=== PATIENT | female | born 1965 | race Caucasian/White ===

== ENCOUNTER 2017-04-15 11:58 | Inpatient (IN) | payer BC ==
[2017-04-15] MEDS ORDERED: LIDOCAINE 2% VISCOUS 15 ML UDCUP PO ONE (13:02)
[2017-04-15] MEDS ORDERED: fentaNYL 100 MCG/2 ML INJ IVP ONE (13:02)
[2017-04-15] MEDS ORDERED: HYOSCYAMINE SULFATE 0.125 MG TAB PO ONE (13:02)
[2017-04-15] MEDS ORDERED: NS 1,000 ML IV ONE (13:02)
[2017-04-15] MEDS ORDERED: MAG HYDROX/AL HYDROX/SIMETH 30 ML UDCUP PO ONE (13:02)
--- NOTE | 2017-04-15 13:02 | EDPHY ---
H & P Time Seen by Provider: 04/15/17 12:39 HPI/ROS: CHIEF COMPLAINT: Abdominal pain HISTORY OF PRESENT ILLNESS: This 51-year-old woman presents with upper abdominal pain since this past Thursday on the weekend. She says it feels like but not in her epigastric area at 88 to her left upper abdomen. It cowan when she swallows. She feels cold and hot. Symptoms moderate to severe and associated with an increase in her blood glucose from a baseline of around 150 to 330 today this a.m.. Associated with decreased oral intake, worse when she tries to eat or drink. Symptoms severe today. REVIEW OF SYSTEMS: Eye: no change in vision ENT: no sore throat Cardiac: no chest pain or syncope Pulmonary: no cough or SOB Abdomen: HPI, no vomiting or diarrhea. She does have nausea. Musculoskeletal: no back pain Skin: no rash Neuro: Mild headache Constitutional: no fever : no urinary symptoms A comprehensive 10 point review of systems is otherwise negative aside from elements mentioned in the history of present illness. PAST MEDICAL HISTORY: Partial hysterectomy, insulin-dependent diabetes, multiple personality. Social history: Here with her daughter, no alcohol. General Appearance: Alert and conversant, cooperative. Eyes: No scleral icterus. ENT, Mouth: Normal mucous membranes. Respiratory: Normal respiratory effort, breath sounds equal, lungs are clear to auscultation. Cardiovascular: Regular rate and rhythm. Gastrointestinal: Epigastric and right upper quadrant tenderness. Neurological: Alert and oriented x3. Normally conversant. Face symmetric, normal movement and sensation in all extremities. Skin: Warm and dry, no rashes. Musculoskeletal: No peripheral edema and no joint swelling. Psychiatric: Tearful, appears uncomfortable. Emergency Department course/MDM: GI cocktail, Zofran 4 mg IV, fentanyl 50 mcg IV. Right upper quadrant ultrasound and labs to include LFTs and lipase. 1309: Negative right upper quadrant ultrasound per Dr. Schwartz. 1440: Feels better but still has epigastric tenderness. CT scanning discussed and consented. 1543: Negative abdominal pelvis CT per Dr. Laguna. 1550: Still having pain, still mildly tender but without rebound or guarding, plan to admit, GI consultation. 1607: Discussed with [place], admit. GI consult, spoke with Helen at 1620. Smoking Status: Never smoked Constitutional: Initial Vital Signs Temperature (C) 36.7 C 04/15/17 12:00 Heart Rate 101 H 04/15/17 12:00 Respiratory Rate 18 04/15/17 12:00 Blood Pressure 125/91 H 04/15/17 12:00 O2 Sat (%) 94 04/15/17 12:00 O2 Delivery Mode Nasal Cannula O2 (L/minute) 2 Allergies/Adverse Reactions: menthol Allergy (Severe, Verified 04/15/17 12:12) Anaphylaxis acetaminophen [From Percocet] Allergy (Intermediate, Verified 04/15/17 12:13) hallucinations oxycodone [From Percocet] Allergy (Intermediate, Verified 04/15/17 12:13) hallucinations hydromorphone [From Dilaudid] Allergy (Unknown, Verified 04/15/17 12:13) Home Medications: Medication Instructions Recorded Citalopram [CeleXA] 20 mg PO 04/15/17 Insulin Detemir [Levemir] 100 unit SQ 04/15/17 Insulin Lispro [humALOG LISPRO 100 100 unit SQ 04/15/17 units/ml (*)] lamoTRIgine [LamICTAL] 25 mg PO 04/15/17 Medical Decision Making - Diagnostics Imaging Results: Imaging Impressions Abdomen Ultrasound 04/15/17 13:03 Impression: 1. Mild hepatomegaly with diffuse hepatic steatosis. 2. Normal appearance of the gallbladder, with no cholelithiasis, cholecystitis, or bile duct dilatation. Findings were discussed with KARISHMA MEDINA MD at 14:14, on 04/15/2017. Abdomen CT 04/15/17 14:42 Impression: 1. No explanation for epigastric pain. Specifically, no evidence of perforated ulcer or pancreatitis. 2. Hepatic steatosis. 3. Constipation. Normal appendix. Findings discussed with Emergency Department physician, Karishma Medina on 2016 at 1551 hours. Differential Diagnosis: Differential diagnosis considered for abdominal pain including but not limited to appendicitis, cholecystitis, pancreatitis, gastritis and urinary tract infection. - Data Points Laboratory Results: Laboratory Results 04/15/17 12:25 04/15/17 12:25 04/15/17 04/15/17 12:25 12:25 WBC 5.55 10^3/uL 10^3/uL (3.80-9.50) RBC 5.61 10^6/uL H 10^6/uL (4.18-5.33) Hgb 17.7 g/dL H g/dL (12.6-16.3) Hct 50.0 % H % (38.0-47.0) MCV 89.1 fL fL (81.5-99.8) MCH 31.6 pg pg (27.9-34.1) MCHC 35.4 g/dL g/dL (32.4-36.7) RDW 12.4 % % (11.5-15.2) Plt Count 194 10^3/uL 10^3/uL (150-400) MPV 10.8 fL fL (8.7-11.7) Neut % (Auto) 58.0 % % (39.3-74.2) Lymph % (Auto) 31.7 % % (15.0-45.0) [place] % (Auto) 7.2 % % (4.5-13.0) Eos % (Auto) 1.8 % % (0.6-7.6) Baso % (Auto) 0.9 % % (0.3-1.7) Nucleat RBC Rel Count 0.0 % % (0.0-0.2) Absolute Neuts (auto) 3.22 10^3/uL 10^3/uL (1.70-6.50) Absolute Lymphs (auto) 1.76 10^3/uL 10^3/uL (1.00-3.00) Absolute Monos (auto) 0.40 10^3/uL 10^3/uL (0.30-0.80) Absolute Eos (auto) 0.10 10^3/uL 10^3/uL (0.03-0.40) Absolute Basos (auto) 0.05 10^3/uL 10^3/uL (0.02-0.10) Absolute Nucleated RBC 0.00 10^3/uL 10^3/uL (0-0.01) Immature Gran % 0.4 % % (0.0-1.1) Immature Gran # 0.02 10^3/uL 10^3/uL (0.00-0.10) Sodium 140 mEq/L mEq/L (134-144) Potassium 4.4 mEq/L mEq/L (3.5-5.2) Chloride 96 mEq/L L mEq/L (97-110) Carbon Dioxide 28 mEq/l mEq/l (22-31) Anion Gap 16 mEq/L mEq/L (8-16) BUN 10 mg/dL mg/dL (7-23) Creatinine 0.6 mg/dL mg/dL (0.6-1.0) Estimated GFR > 60 Glucose 317 mg/dL H mg/dL (70-100) Calcium 9.7 mg/dL mg/dL (8.5-10.4) Total Bilirubin 1.2 mg/dL mg/dL (0.1-1.4) Conjugated Bilirubin 0.3 mg/dL mg/dL (0.0-0.5) Unconjugated Bilirubin 0.9 mg/dL mg/dL (0.0-1.1) AST 28 IU/L IU/L (14-46) ALT 55 IU/L H IU/L (9-52) Alkaline Phosphatase 107 IU/L IU/L (38-126) Total Protein 6.1 g/dL L g/dL (6.3-8.2) Albumin 3.9 g/dL g/dL (3.5-5.0) Lipase 114 IU/L IU/L (23-300) Medications Given: Discontinued Medications Al Hydroxide/Mg Hydroxide (Maalox Susp) 30 ml PO ONCE ONE Stop: 04/15/17 13:03 Last Admin: 04/15/17 13:24 Dose: 30 ml Fentanyl (Sublimaze) 50 mcg IVP EDNOW ONE Stop: 04/15/17 13:03 Last Admin: 04/15/17 13:25 Dose: 50 mcg Hyoscyamine Sulfate (Levsin, Hyomax-Sl) 0.25 mg PO ONCE ONE Stop: 04/15/17 13:03 Last Admin: 04/15/17 13:25 Dose: 0.25 mg Sodium Chloride (Ns) 1,000 mls @ 0 mls/hr IV EDNOW ONE; Wide Open PRN Reason: Protocol Stop: 04/15/17 13:03 Last Admin: 04/15/17 13:27 Dose: 1,000 mls Lidocaine (Lidocaine 2% Viscous) 15 ml PO ONCE ONE Stop: 04/15/17 13:03 Last Admin: 04/15/17 13:24 Dose: 15 ml Promethazine HCl (Phenergan) 12.5 mg IVP EDNOW ONE Stop: 04/15/17 13:04 Last Admin: 04/15/17 13:27 Dose: 12.5 mg Departure - Departure Disposition: [facility] Inpatient Acute Clinical Impression: Abdominal pain Qualifiers: Abdominal location: epigastric Qualified Code(s): R10.13 - Epigastric pain Condition: Good
[2017-04-15] MEDS ORDERED: PROMETHAZINE HCL 25 MG/ML INJ IVP ONE (13:03)
[2017-04-15 13:07] LABS: % IMMATURE GRANULYOCYTES 0.4 % (0.0-1.1); ABSOLUTE IMMATURE GRANULOCYTES 0.02 10^3/uL (0.00-0.10); ADD DIFF? NO; ADD MORPH? NO; ADD SCAN? NO; ATYPICAL LYMPHOCYTE FLAG 0 (0-99); FRAGMENT RBC FLAG 0 (0-99); HEMOGLOBIN 17.7 g/dL (12.6-16.3); LEFT SHIFT FLG 0 (0-99); LIPEMIA HEMOLYSIS FLAG 90 (0-99); MEAN CELL HEMOGLOBIN 31.6 pg (27.9-34.1); MEAN CELL HEMOGLOBIN CONCENTR. 35.4 g/dL (32.4-36.7); MEAN CELL VOLUME 89.1 fL (81.5-99.8); MEAN PLATELET VOLUME 10.8 fL (8.7-11.7); PLATELET CLUMPS FLAG 0 (0-99); PLATELET COUNT 194 10^3/uL (150-400); RED BLOOD CELL COUNT 5.61 10^6/uL (4.18-5.33); RED CELL DISTRIBUTION WIDTH 12.4 % (11.5-15.2)
[2017-04-15 13:13] LABS: ALANINE AMINOTRANSFERASE 55 IU/L (9-52); ALBUMIN 3.9 g/dL (3.5-5.0); ALKALINE PHOSPHATASE 107 IU/L (38-126); ANION GAP 16 mEq/L (8-16); ASPARTATE AMINOTRANSFERASE 28 IU/L (14-46); BILIRUBIN,TOTAL 1.2 mg/dL (0.1-1.4); BILIRUBIN-CONJUGATED 0.3 mg/dL (0.0-0.5); BILIRUBIN-UNCONJUGATED 0.9 mg/dL (0.0-1.1); CALCIUM 9.7 mg/dL (8.5-10.4); CARBON DIOXIDE 28 mEq/l (22-31); CHLORIDE 96 mEq/L (97-110); CREATININE 0.6 mg/dL (0.6-1.0); GLOMERULAR FILTRATION RATE > 60; GLUCOSE 317 mg/dL (70-100); POTASSIUM 4.4 mEq/L (3.5-5.2); SODIUM 140 mEq/L (134-144); TOTAL PROTEIN 6.1 g/dL (6.3-8.2)
--- NOTE | 2017-04-15 14:09 | CPEKG ---
Heart Rate: 87 RR Interval: 690 P-R Interval: 168 QRSD Interval: 74 QT Interval: 356 QTC Interval: 429 P [place]: 67 QRS [place]: -4 T Wave [place]: 64 EKG Severity - ABNORMAL ECG - EKG Impression: SINUS RHYTHM EKG Impression: PAUL, CONSIDER BIATRIAL ABNORMALITIES EKG Impression: PROBABLE LEFT VENTRICULAR HYPERTROPHY Electronically Signed By: Mikie Domingo 15-Apr-2017 19:45:52
[2017-04-15] MEDS ORDERED: IOPAMIDOL (ISOVUE-300) 100 ML BTL ONE (14:48)
[2017-04-15] MEDS ORDERED: D50W 25 GM/50 ML SYR IVP PRN (18:39)
[2017-04-15] MEDS ORDERED: PROMETHAZINE HCL 25 MG/ML INJ IVP PRN (18:42)
[2017-04-15] MEDS ORDERED: ACETAMINOPHEN 325 MG TAB PO PRN (18:42)
[2017-04-15] MEDS ORDERED: ONDANSETRON 4 MG/2 ML VIAL IVP PRN (18:42)
[2017-04-15] MEDS ORDERED: LACTULOSE 20 GM/30 ML UDCUP PO PRN (19:37)
[2017-04-15] MEDS ORDERED: MAGNESIUM HYDROXIDE 30 ML UDCUP PO PRN (19:37)
[2017-04-15] MEDS ORDERED: BISACODYL 10 MG SUPP PR PRN (19:37)
[2017-04-15] MEDS ORDERED: POLYETHYLENE GLYCOL 3350 17 GM PKT PO PRN (19:37)
[2017-04-15] MEDS: PANTOPRAZOLE SODIUM 40 MG VIAL IVP SCH (19:55)
[2017-04-15] MEDS: NS 1,000 ML IV SCH (19:55)
--- NOTE | 2017-04-15 19:59 | GHP ---
[f rep st] HISTORY AND PHYSICAL DATE OF ADMISSION: 04/15/2017 CHIEF COMPLAINT: Epigastric pain. HISTORY: The patient is a 51-year-old female, who has had 5 days of severe epigastric pain. It burn s when she swallows and gets worse when she eats and drinks. The burning radiates into her chest. S he has had nausea but no vomiting. She denies any fever. There has been no diarrhea or constipation . She has had a 20 pound unintentional weight loss since June. PAST MEDICAL HISTORY: Diabetes, multiple personality disorder, peptic ulcer disease as a teenager. PAST SURGICAL HISTORY: Hysterectomy. MEDICATIONS: Please see computer record for full detailed list. ALLERGIES: Oxycodone. SOCIAL HISTORY: No smoking. No alcohol. She lives with her . REVIEW OF SYSTEMS: Complete review of systems obtained. Review of systems is negative regarding con stitutional, HEENT, GI, pulmonary, vascular, , hematology, skin, musculoskeletal, endocrine, psychi atric except for positives and negatives as in HPI. FAMILY HISTORY: Reviewed and noncontributory to presenting complaint. PHYSICAL EXAMINATION: GENERAL: Well-developed, well-nourished female, in no distress. VITAL SIGNS: Temperature 36.7, pulse 101, blood pressure 125/91, saturating 94% on room air. HEENT: Normal con junctivae. Pupils equal and reactive to light. ENT: Normal ears, nose. Hearing intact. Normal te eth. Oropharynx moist. NECK: Trachea midline. No thyromegaly. CHEST: Normal respiratory effort. LUNGS: Clear to auscultation bilaterally. CARDIOVASCULAR: Regular rate and rhythm. No murmur. No lower extremity edema. ABDOMEN: Soft. Positive epigastric tenderness to palpation without rebou nd or guarding. No hepatosplenomegaly. SKIN: Warm, dry, intact. No rash. MUSCULOSKELETAL: No cy anosis or clubbing. Strength 5/5 upper and lower extremities. NEURO: Cranial nerves intact. Niru l sensation to light touch. PSYCHIATRIC: Alert and oriented x3. Normal affect. Normal judgment. Normal memory. LABORATORY DATA: White count 5.55, hematocrit 50, platelets 194. Sodium 140, potassium 4.4, chlorid e 96, bicarb 28, BUN 10, creatinine 0.6, glucose 317. LFTs are negative. EKG, viewed by me. My personal interpretation is normal sinus rhythm, no ST-T wave changes. CT scan of the abdomen and pelvis is negative except for some constipation. Her ultrasound shows a fatty liver. ASSESSMENT AND PLAN: 1. Epigastric pain. This is quite severe with significant chest burning with any attempt at p.o. S he has had an unintentional weight loss. I have spoken with Dr. Cervantes, on-call for Gastroenterology . She likely does need an EGD but is not emergent at this evening. We will start her empirically on a proton pump inhibitor and give her clear liquids. He recommends we call [facility] for EGD in the morning if it is warranted to be done as an inpatient. If she improves on empiric proton pum p inhibitor therapy however, could potentially discharge to arrange as an outpatient although given t he severity of her symptoms at this time, I think that is unlikely. 2. Diabetes. She is on Lantus at home. I will give her a reduced dose tonight due to her anticipat ed n.p.o. Status. 3. Multiple personality disorders. This appears currently stable. Continue Lamictal and Celexa. 4. Obesity, body mass index is 33. COR STATUS: Full. ADMISSION STATUS: 1. Will admit to observation. Clinical course will depend on length of treatment needed. 2. DVT prophylaxis. She is low risk. /[id number]/MODL
[2017-04-15] MEDS ORDERED: INSULIN GLARGINE 100 UNITS/ML SYRINGE SC SCH ×2 (21:00)
[2017-04-15] MEDS ORDERED: NON-FORMULARY NEW DRUG (Insulin Detemir [Levemir] 35 UNIT) SQ SCH (21:00)
[2017-04-15] MEDS: INSULIN REGULAR HUMAN 100 UNIT/ML SC SCH (21:07)
[2017-04-15] MEDS: SENNOSIDES/DOCUSATE SODIUM TAB PO SCH (21:09)
[2017-04-16] MEDS: NS 1,000 ML IV SCH (05:15)
[2017-04-16 05:53] LABS: % IMMATURE GRANULYOCYTES 0.2 % (0.0-1.1); ABSOLUTE IMMATURE GRANULOCYTES 0.01 10^3/uL (0.00-0.10); ADD DIFF? NO; ADD MORPH? NO; ADD SCAN? NO; ATYPICAL LYMPHOCYTE FLAG 10 (0-99); FRAGMENT RBC FLAG 0 (0-99); HEMATOCRIT 44.6 % (38.0-47.0); HEMOGLOBIN 15.6 g/dL (12.6-16.3); LEFT SHIFT FLG 0 (0-99); LIPEMIA HEMOLYSIS FLAG 90 (0-99); MEAN CELL HEMOGLOBIN 31.8 pg (27.9-34.1); MEAN CELL VOLUME 90.8 fL (81.5-99.8); MEAN PLATELET VOLUME 10.3 fL (8.7-11.7); PLATELET CLUMPS FLAG 0 (0-99); PLATELET COUNT 160 10^3/uL (150-400); RED BLOOD CELL COUNT 4.91 10^6/uL (4.18-5.33); RED CELL DISTRIBUTION WIDTH 12.7 % (11.5-15.2)
[2017-04-16 06:02] LABS: ANION GAP 9 mEq/L (8-16); CALCIUM 8.7 mg/dL (8.5-10.4); CARBON DIOXIDE 25 mEq/l (22-31); CHLORIDE 106 mEq/L (97-110); CREATININE 0.6 mg/dL (0.6-1.0); GLOMERULAR FILTRATION RATE > 60; GLUCOSE 200 mg/dL (70-100); SODIUM 140 mEq/L (134-144)
[2017-04-16] MEDS: SENNOSIDES/DOCUSATE SODIUM TAB PO SCH ×2 (08:43→20:00)
[2017-04-16] MEDS: PANTOPRAZOLE SODIUM 40 MG VIAL IVP SCH ×2 (08:43→20:00)
[2017-04-16] MEDS: INSULIN REGULAR HUMAN 100 UNIT/ML SC SCH ×4 (08:43→20:52)
[2017-04-16] MEDS: lamoTRIgine 25 MG TAB PO SCH (08:44)
[2017-04-16] MEDS: CITALOPRAM 20 MG TAB PO SCH (08:44)
[2017-04-16] MEDS ORDERED: (Empagliflozin [Jardiance] 25 MG) PO SCH (09:00)
[2017-04-16] MEDS ORDERED: NON-FORMULARY NEW DRUG (Empagliflozin [Jardiance] 25 MG) PO SCH (09:00)
--- NOTE | 2017-04-16 09:59 | HOSPPROG ---
Hospitalist Progress Note Assessment/Plan: Epigastric pain - Suspect PUD / gastritis as pt has h/o ulcers diagnosed as a teen. She feels better this am, but hasn't eaten. -added sucralfate and tried clears, but pain recurred -discussed with GI -will return to NPO, EGD later today or tomorrow am -cont IV PPI while NPO -H pylori sent, neg DM - bg's 100's today -hold lantus and change to q6h reg while NPO Dissociative Identity Disorder - stable, cont outpt meds Full code Dispo - change to inpt as warrants further evaluation and intervention for persistent epigastric pain Subjective: Pt feels ok, pain improved this am, but she hasn't eaten anything. No N/V or diarrhea. No fevers/chills. Objective: Vital Signs Temp Pulse Resp BP Pulse Ox 36.7 C 86 16 107/75 89 L 04/16/17 07:56 04/16/17 07:56 04/16/17 07:56 04/16/17 07:56 04/16/17 07:56 Laboratory Results 04/16/17 05:25 04/16/17 05:25 04/15/17 04/16/17 04/17/17 05:59 05:59 05:59 Intake Total 1000 Balance 1000 - Physical Exam Constitutional: no apparent distress, obese Eyes: PERRL Ears, Nose, Mouth, Throat: moist mucous membranes Cardiovascular: regular rate and rhythym Respiratory: no respiratory distress, no rales or rhonchi Gastrointestinal: normoactive bowel sounds, other (soft, mild epigastric TTP, no r/r/g) Skin: warm Musculoskeletal: full muscle strength Neurologic: AAOx3 Psychiatric: interacting appropriately ICD10 Worksheet Patient Problems: Problems Problem Status Onset Abdominal pain Acute
[2017-04-16] MEDS: SUCRALFATE 1 GM/10 ML UDCUP PO SCH ×3 (11:45→20:00)
--- NOTE | 2017-04-16 12:54 | PDMN ---
Medical Necessity Medical necessity: Patient meets INPT criteria per physician note and MCG M-05 Abdominal pain, Undiagnosed (abd pain that reoccurs w/clear liqs; now NPO, IV hydration and PPI, freq IV pain mgmt, awaiting EGD; suspected gastritis/PUD as hx of ulcers as teen; anticipated LOS > 2 midnights.)
[2017-04-16] MEDS ORDERED: LR 1,000 ML IV ONE (14:42)
--- NOTE | 2017-04-16 15:34 | PDANEPAE ---
ANE History of Present Illness 51 year old female with abdominal pain for EGD. Patient with insulin dependent diabetes. Long psychiatric history. ANE Past Medical History - Cardiovascular History Hx Hypertension: No Hx Arrhythmias: No Hx Chest Pain: No Hx Coronary Artery / Peripheral Vascular Disease: No Hx CHF / Valvular Disease: No Hx Palpitations: No - Pulmonary History Hx COPD: No Hx Asthma/Reactive Airway Disease: No Hx Recent Upper Respiratory Infection: No Hx Oxygen in Use at Home: No Hx Sleep Apnea: Yes Sleep Apnea Screening Result - Last Documented: Positive - Endocrine History Hx Diabetes: Yes Hypothyroid: No Hyperthyroid: No Obesity: mild - Renal History Hx Renal Disorders: No - Liver History Hx Hepatic Disorders: No - Neurological & Psychiatric Hx Hx Neurological and Psychiatric Disorders: Yes Neurological / Psychiatric History Comment: Significant psychiatric history - GI History GERD: no Hx Gastrointestinal Disorders: No ANE Review of Systems Review of systems is: negative Review of Systems: - Exercise capacity Exercise capacity: >=4 METS ANE Patient History - Allergies Allergies/Adverse Reactions: menthol Allergy (Severe, Verified 04/15/17 12:12) Anaphylaxis acetaminophen [From Percocet] Allergy (Intermediate, Verified 04/15/17 12:13) hallucinations oxycodone [From Percocet] Allergy (Intermediate, Verified 04/15/17 12:13) hallucinations hydromorphone [From Dilaudid] Allergy (Unknown, Verified 04/15/17 12:13) corn Allergy (Verified 04/16/17 10:55) corn syrup Allergy (Verified 04/16/17 11:15) Other-Enter Comments cornflower Allergy (Verified 04/16/17 10:55) fat emulsions [From Soyacal] Allergy (Verified 04/16/17 10:56) milk Allergy (Verified 04/16/17 10:56) Milk Containing Products Allergy (Verified 04/16/17 10:56) soy Allergy (Verified 04/16/17 10:56) soybean Allergy (Verified 04/16/17 10:56) - Home Medications Home medications: home medication list seen and reviewed Home Medications: Citalopram [CeleXA] 20 mg PO DAILY 04/15/17 [Last Taken 04/15/17] Empagliflozin [Jardiance] 25 mg PO DAILY 04/15/17 [Last Taken 04/15/17] Insulin Detemir [Levemir] 35 unit SQ HS 04/15/17 [Last Taken 04/14/17] Insulin Lispro [humALOG LISPRO 100 units/ml (*)] 0 ea SQ TIDMEAL 04/15/17 [Last Taken 04/15/17] lamoTRIgine [LamICTAL] 25 mg PO DAILY 04/15/17 [Last Taken 04/15/17] - NPO status NPO Status: no food or drink >8 hours NPO Since - Liquids (Date): 04/16/17 NPO Since - Liquids (Time): 08:00 NPO Since - Solids (Date): 04/14/17 NPO Since - Solids (Time): 23:00 - Anes Hx Anes Hx: no prior problems - Smoking Hx Smoking Status: Never smoked Marijuana use: No - Alcohol Use Alcohol Use: None - Family Anes Hx Family Anes Hx: neg - N/A ANE Labs/Vital Signs - Labs Result Diagrams: 04/16/17 05:25 04/16/17 05:25 - Vital Signs Vital Signs: reviewed preoperatively; see RN documention for details Blood Pressure: 136/80 Heart Rate: 88 Respiratory Rate: 16 O2 Sat (%): 90 Height: 175.26 cm Weight: 103.1 kg ANE Physical Exam - Airway Neck exam: FROM Mallampati Score: Class 2 Mouth exam: normal dental/mouth exam - Pulmonary Pulmonary: no respiratory distress - Cardiovascular Cardiovascular: regular rate and rhythym - ASA Status ASA Status: III ANE Anesthesia Plan Anesthesia Plan: GA with mask Total IV Anesthesia: Yes
[2017-04-16] MEDS ORDERED: PROPOFOL/EMULSION 500 MG/50 ML BOTTLE IV ONE (15:36)
--- NOTE | 2017-04-16 15:51 | POSTOPPROG ---
Post Op Note Date of Operation: 04/16/17 Surgeon: Eulogio Perez Anesthesiologist: Eulogio Shaver Anesthesia: Other (Specify) (IV general) Pre-op Diagnosis: PUD Post-op Diagnosis: diffuse gastritis, multiple shallow ulcers Indication: epigastric pain Procedure: egd and bx Findings: diffuse gastritis multiple shallow ulcers in antrum s/p bx Inf/Abcess present in the surg proc area at time of surgery?: No EBL: Minimal (few ml from bx) Total fluids administered: 200 ml LR Complications: none immediate
[2017-04-16] MEDS ORDERED: INSULIN GLARGINE 100 UNITS/ML SYRINGE SC SCH (16:03)
[2017-04-16] MEDS ORDERED: NALOXONE HCL 0.4 MG/ML INJ IVP PRN (16:04)
[2017-04-16] MEDS ORDERED: fentaNYL 100 MCG/2 ML INJ IVP PRN (16:04)
--- NOTE | 2017-04-16 16:05 | POSTANESTH ---
Post Anesthetic Evaluation Cardiovascular Status: Normal, Stable, Similar to Pre-Op Cond Respiratory Status: Normal, Stable, Similar to Pre-op Cond. Level of Consciousness/Mental Status: Can Participate in Eval, Alert and Oriented Pain Control: Adequate, Prn Tx Ordered Nausea/Vomiting Control: Adequate, Prn Tx Ordered Complications Possibly Related to Anesthesia: None Noted
--- NOTE | 2017-04-16 16:09 | GIREPORT ---
[facility] - Endoscopy Department Patient Name: Rama Carpenter Procedure Date: 04/16/2017 1:50 PM Patient Type: Inpatient Attending MD/ ER Physician: Miller Hernandez Procedure: Upper GI endoscopy Indications: Epigastric abdominal pain Providers: Stanton Perez MD Medicines: Sedation Required Anesthesia Staff Assistance Complications: No immediate complications. Estimated blood loss: Minimal. Description of Procedure: After obtaining informed consent, the endoscope was passed under direct vision. Throughout the procedure, the patient's blood pressure, pulse, and oxygen saturations were monitored continuously. The Endoscope was intro duced through the mouth, and advanced to the third part of duodenum. The uppe r GI endoscopy was accomplished without difficulty. The patient tolerated th e procedure well. Findings: The examined esophagus was normal. Diffuse moderate inflammation characterized by congestion (edema), eros ions, erythema and shallow ulcerations was found on the greater curvature of the gastric body and in the gastric antrum. Biopsies were taken with a cold forceps for histology. Estimated blood loss was minimal. The examined duodenum was normal. The exam was otherwise without abnormality. Estimated Blood Loss: Estimated blood loss was minimal. Post Op Diagnosis: - Normal esophagus. - Gastritis. Biopsied. - Normal examined duodenum. - The examination was otherwise normal. Recommendation: - Await pathology results. - My office will call with the pathology result with 5-7 days. If you h ave not heard from my office by 12-14, do not assume the pathology is reyna l, please call [phone] to get the pathology reults. - Use Protonix (pantoprazole) 40 mg IV BID. Change to PO when able. Whe n symtpsom rsolve, decrease to once daily for total of 8 weeks. - Use Zantac (ranitidine) 150 mg IV at bedtime. Change to PO when able. - Advance diet as tolerated. - Repeat upper endoscopy in 3 months to check healing. - Perform a colonoscopy at appointment to be scheduled. For routine screening, can be at same time as EGD - [facility] to [facility]. - Thank you for allowing me to help in your patient's care. Do not hesi kong to call with any questions. Attending Participation: I personally performed the entire procedure. Ana Eid M.D Stanton Perez MD 04/16/2017 4:08:59 PM This report has been signed electronicallyMathew MD Ana Number of Addenda: 0 Note Initiated On: 04/16/2017 1:50 PM [email or web address]
--- NOTE | 2017-04-16 16:51 | ASMTCMCOM ---
CM Note CM Note Notes: Dc needs unclear, pt lives at home w/, CM will follow. Date Signed: 04/16/2017 04:50 PM Electronically Signed By:Becka Spencer RN
--- NOTE | 2017-04-16 18:04 | GCON ---
[f rep st] CONSULTATION DATE OF CONSULTATION: 04/16/2017 REQUESTING PHYSICIAN: Lulu Day. REASON FOR CONSULTATION: Epigastric pain, unable to tolerate p.o. I have been asked by Dr. Day to see patient in consultation with chief complaint of epigastric pain. Patient is a pleasant 51-year-old female with past medical history significant for diabetes, psychiatric disorder, and peptic ulcer disease as a teenager. She was in her usual state of health until Thursday when she started to have a stomachache but felt reasonably well. Thursday it increased significantly and she had significantly more pain with p.o. intake. She had nausea but no vomiting. She has not had any change in stool, but she has had no stool since Thursday. She has decreased her p.o. intake. She was admitted for the above. She was tried to be advanced to liquids and could not tolerate it. This epigastric pain is the exact same symptom that she had when she had peptic ulcer disease as a teenager. Because she is unable to tolerate p.o., I am called to help evaluate in that regard. PAST MEDICAL/SURGICAL HISTORY: Diabetes, psychiatric disorder, peptic ulcer disease as a teenager, hysterectomy in 2003, 1988. ALLERGIES: Percocet, Vicodin cause hallucinations. Menthol causes extreme difficulty with breathing. SOCIAL HISTORY: No tobacco, no alcohol. FAMILY HISTORY: No colon cancer or colon polyps. MEDICATIONS: At home include Lamictal, insulin, insulin detemir, citalopram, empagliflozin, aspirin 81 mg. In hospital, she is written for Dulcolax p.r.n., Celexa 20 mg daily, Lantus 20 mg subcu q.h.s., insulin Humulin regular HR insulin Cephulac 20 mg t.i.d. constipation, Lamictal 25 mg daily, morphine p.r.n., Zofran p.r.n., Protonix 40 mg IVP daily, MiraLAX p.r.n., Phenergan 6.25 mg IV q.6 p.r.n., Senokot 1-2 tabs p.o. b.i.d., Carafate 1 g p.o. q.a.c. q.h.s. REVIEW OF SYSTEMS: A complete review of systems was performed, was negative other than noted in the HPI. PHYSICAL EXAM: GENERAL: Well developed, well nourished, no acute distress. VITAL SIGNS: Blood pressure 136/80, pulse 88, respirations 16. She is 90% on room air. HEENT: Eyes: Anicteric. REINA, EOMI. Mouth: No lesions. NECK: Full range of motion. No JVD. BACK: No spine tenderness. No CVA tenderness. LUNGS: Clear to auscultation. CARDIAC: S1, S2. Regular rhythm. No murmurs , rubs, gallops appreciated. ABDOMEN: Bowel sounds normal pitch and frequency. Soft with significant epigastric tenderness with some guarding. No rebound. No hepatosplenomegaly. EXTREMITIES: No cyanosis, clubbing, or edema. NEUROLOGIC: Cranial nerves intact. Nonfocal. SKIN: No stigmata of liver disease. No rashes. LABORATORY DATA: WBC 5.27, hemoglobin 15.6, hematocrit 44.6, platelet count 160 , from today, April 16. Sodium 140, potassium 4.0, chloride 106, bicarb 25 , BUN 11, creatinine 0.9, glucose 200, calcium 8.7. TSH 1.37. From yesterday: AST 28, ALT mildly elevated at 55, alk phos 107, total protein 6.1, albumin 3.9, lipase 114. H pylori antibody IgG is negative. She had an abdominal ultrasound performed on April 15, which revealed mild hepatomegaly with diffuse hepatic steatosis. Normal appearance of the gallbladder with no cholelithiasis, cholecystitis, or bile duct dilatation. An abdominal CT scan that was done also on April 15, 2017, was with IV contrast but no oral contrast. No explanation of epigastric pain, specifically no evidence of perforated ulcer or pancreatitis. She does have hepatic steatosis. She has constipation with a normal appendix. ASSESSMENT: 1. Epigastric pain consistent with peptic ulcer disease, likely related to the aspirin that she takes at home. I am not worried about significant bleeding as hemoglobin is fine. 2. Diabetes. 3. Psychiatric disorder. RECOMMENDATIONS: 1. Urgent EGD for evaluation of epigastric pain. This to be done with anesthesiologist given her medical issues and medications. 2. Agree with proton pump inhibitor. Will likely increase it to b.i.d. and add q.h.s. H2RA. 3. Carafate is not my favorite medication but it can be helpful. You would have to separate it for 1-2 hours from other medications so it does not bind them in the stomach and prevent their absorption. 4. Recommend outpatient screening colonoscopy at some point. 5. Further recommendations to follow results of above and clinical course. I do think the patient most likely has some type of peptic ulcer disease. Likely will increase the proton pump inhibitor and add a q.h.s H2. Helicobacter pylori antibody is negative so this has not been the etiology of her pain. She may need to have aspirin cessation for a number of weeks to heal this up and then her primary care physician can decide about prophylaxis long- term with something like an H2 receptor antagonist to prevent ulcer disease from recurring. Thank you very much for allowing me to participate in this patient's health care. Please do not hesitate to call me with any questions. /[id number]/MODL MTDD
[2017-04-16] MEDS ORDERED: FAMOTIDINE 20 MG/NACL 50 ML IV SCH (21:00)
[2017-04-16] MEDS ORDERED: RANITIDINE 50 MG/2 ML VIAL IVP SCH (22:00)
[2017-04-16 22:52] VITALS: RESP 16; O2SAT 92
[2017-04-17] MEDS: INSULIN REGULAR HUMAN 100 UNIT/ML SC SCH (04:59)
[2017-04-17] MEDS ORDERED: D50W 25 GM/50 ML SYR IVP PRN (07:27)
[2017-04-17 07:38] VITALS: BP 113/69; PULSE 95; TEMP 98.7
[2017-04-17] MEDS ORDERED: INSULIN LISPRO 100 UNIT/ML SC SCH (08:00)
[2017-04-17] MEDS ORDERED: D10W 250 ML PRN HYPOGLYCEMIA IV (08:00)
[2017-04-17] MEDS ORDERED: INSULIN GLARGINE 100 UNITS/ML SYRINGE SC SCH ×2 (08:00)
[2017-04-17] MEDS: CITALOPRAM 20 MG TAB PO SCH (08:23)
[2017-04-17] MEDS: PANTOPRAZOLE SODIUM 40 MG VIAL IVP SCH (08:23)
[2017-04-17] MEDS: SUCRALFATE 1 GM/10 ML UDCUP PO SCH (08:23)
[2017-04-17] MEDS: SENNOSIDES/DOCUSATE SODIUM TAB PO SCH (08:23)
[2017-04-17] MEDS: lamoTRIgine 25 MG TAB PO SCH (08:25)
[2017-04-17] MEDS ORDERED: (Empagliflozin [Jardiance] 25 MG) PO SCH (09:00)
--- NOTE | 2017-04-17 10:38 | SOAPPROG ---
SOAP Progress Note Assessment/Plan: Assessment:Plan: 1) Epi pain from gastritis, ulceration - PPI BID 30-60 minutes prior to breakfast and dinner, QHS H2RA such as zantac 150 or pepcid 20 (OTC dose, marilee could be rx dose). Once better, decrease PPI to once daily - 8 weeks therapy with PPI, can stop H2RA whenvere she is feeling well. EGD in 3 months to check healing. f/u bx. pt prob home today 04/17/17 10:35 Subjective: CC- epi pain, gastric ulcer, gastritis pt still with pain, but can tolerate PO wants to go home Objective: Vital Signs Temp Pulse Resp BP Pulse Ox 37.1 C 95 16 113/69 92 04/17/17 07:32 04/17/17 07:32 04/17/17 07:32 04/17/17 07:32 04/17/17 07:32 04/16/17 04/17/17 04/18/17 05:59 05:59 05:59 Intake Total 615 Output Total 300 Balance 315 CTA S1S2 +BS, soft epi pain, + guarding but no rebound ICD10 Worksheet Patient Problems: Problems Problem Status Onset Abdominal pain Acute
--- NOTE | 2017-04-17 12:27 | GDS ---
[f rep st] DISCHARGE SUMMARY DISCHARGE DIAGNOSES: 1. Epigastric pain secondary to gastritis and shallow peptic ulcer disease. 2. Diabetes mellitus type 2. 3. Dissociative identity disorder. CONSULTANTS: Dr. Eulogio Perez, gastroenterology. IMAGING STUDIES AND PROCEDURES: 1. Abdomen ultrasound, April 15, was negative for cholelithiasis, cholecystitis, or bile duct dila tation and showed mild hepatomegaly with diffuse hepatic steatosis. 2. Abdomen CT, April 15, showed no evidence of perforated ulcer pancreatitis. Again, hepatic steat osis was noted, as well as constipation. 3. Upper endoscopy, performed April 16, [address] Eulogio Perez, showed a normal esophagus, m oderate gastritis with shallow ulcerations in the greater curvature of the gastric body and gastric a ntrum. Biopsies were taken and are currently pending. HISTORY: For details, please see the history and physical dated April 15, 2017. In brief, the lashaun ent is a 51-year-old female, with a history of type 2 diabetes, who presents to the emergency departm ent with 5 days of severe epigastric pain, described as burning, worse with oral intake. She was admi tted to the hospital for further management. HOSPITAL COURSE: The patient was admitted to the medical-surgical unit. She was treated with IV prot on pump inhibitor and made n.p.o. Her symptoms were much improved the following morning, and she was given a p.o. challenge. However, her pain recurred. She was made n.p.o. again, and GI was consulted f or upper endoscopy. This revealed moderate gastritis and shallow ulcer seen in the antrum of the stom ach. She was continued on b.i.d. IV Protonix. This was transitioned to oral on the day of discharge. She is also given sucralfate and p.r.n. Zantac. She is tolerating a full diet on the day of discharge , and her pain has improved. It is recommended she follow up with Gastroenterology in 3 months to rep eat upper endoscopy to ensure healing. She was counseled on dietary modifications. She will continue her usual outpatient insulin for her diabetes. Her mood has been stable and she wishes to discharge h ome. DISPOSITION: The patient is discharged home in stable condition. FOLLOWUP: 1. Dr. Eulogio Perez, gastroenterology, in 2-3 months for repeat EGD, as well as colonoscopy for sc reening purposes. 2. Primary care provider. DISCHARGE MEDICATIONS: Please see [facility] for complete updated outpatient medication list. New medi cations on discharge include Protonix 40 mg p.o. b.i.d., #60 no refills; ranitidine 150 mg p.o. q.h.s . p.r.n., #30 no refills; and sucralfate 1 g p.o. a.c.h.s., no refills. She will continue her other o utpatient medications as previously prescribed, including Lamictal, insulin detemir, insulin lispro, Celexa, and Jardiance. /[id number]/MODL
--- NOTE | 2017-04-17 14:19 | ASDISCHSUM ---
Discharge Information Plan Status:Home with No Needs Medically Cleared to Leave: Discharge Date:04/17/2017 11:19 AM CM D/C Disposition:Home, Routine, Self-Care ADT D/C Disposition:Home, Routine, Self-Care Projected Discharge Date:04/17/2017 11:19 AM Transportation at D/C:Family Discharge Delay Reason: Follow-Up Date:04/17/2017 11:19 AM Discharge Slot: Final Diagnosis: Placement Information Patient Contact Information Contact Name:NALDO Relationship: Address:[address] [place] [address] City:[facility] Phone: [facility]/Zip Code:[place] [address] Email: Financial Information Financial Class:HMO and PPO Plans Primary Plan Desc: OUT OF STATE PPO Primary Plan Number:[id number] Secondary Plan Desc: Secondary Plan Number: Assessment Information [facility] CM Progress Note CM Note CM Note Notes: Dc needs unclear, pt lives at home w/, CM will follow. Date Signed: 04/16/2017 04:50 PM Electronically Signed By:Becka Spencer RN Intervention Information
== END 2017-04-17 11:19 | disposition home or self-care (01) | DRG 392 ==
LOC: F3E 17:07 → OBSVTOIN 04-16 12:05
PROVIDERS: ADMIT Internal Medicine; ATTEND Internal Medicine
PROC: 0DB68ZX Excision of Stomach, Via Natural or Artificial Opening Endoscopic, Diagnostic (ICD-10-PCS; principal; 2017-04-16 14:15)
DX: K29.70 Gastritis, unspecified, without bleeding (principal); K27.9 Peptic ulcer, site unspecified, unspecified as acute or chronic, without hemorrhage or perforation; E11.9 Type 2 diabetes mellitus without complications; F44.81 Dissociative identity disorder; E66.9 Obesity, unspecified; Z68.33 Body mass index [BMI] 33.0-33.9, adult; G47.30 Sleep apnea, unspecified; Z79.4 Long term (current) use of insulin
CPT/HCPCS: 82941-90; 96374; G0378; J1815; J2550; J2704; J3010; Q9967